=== PATIENT | male | born 1965 | race Caucasian/White ===

== ENCOUNTER 2018-02-07 22:03 | Inpatient (IN) | payer BC ==
[~2018-02-07] VITALS: Ht 182.9 cm; Wt 103.0 kg
[~2018-02-07 22:03] MED LIST: LORCET 5-325 M1 EACH PO; RELAFEN500 M1 PO; SOMA350 MG PO; ZOCOR20 MG PO
[2018-02-08 06:17] VITALS: BP 130/81
[2018-02-08] MEDS ORDERED: ENDOCET 5-3251 EACH PO (10:35)
[2018-02-08] MEDS ORDERED: DOCUSATE SODIU100 MG PO (10:35)
[2018-02-08 15:20] VITALS: BP 137/80
[2018-02-08 23:39] VITALS: BP 176/86
[2018-02-09 04:24] VITALS: BP 177/86
[2018-02-09 06:21] LABS: HEMATOCRIT 39.8 % (38.0-50.0); HEMOGLOBIN 12.9 G/DL (12.5-16.6); MCH 29.5 PG (29.0-34.0); MCHC 32.4 G/DL (30.0-36.0); MCV 90.9 FL (86-99); PLATELET COUNT 229 K/uL (156-360); RBC DIS.WIDTH-CV 13.3 % (11.8-14.6); RBC DIS.WIDTH-SD 44.3 % (39-53); RED BLOOD COUNT 4.38 M/uL (4.00-5.50)
[2018-02-09 06:45] LABS: CHLORIDE 103 MEQ/L (99-109); CREATININE 1.1 MG/DL (0.6-1.3); GFR ESTIMATE (CALCULATED) > 59 mL/min/ (58.99-99999); GLUCOSE 106 mg/dL (70-99); POTASSIUM 4.2 MEQ/L (3.7-5.4); SODIUM 138 MEQ/L (136-147); UREA NITROGEN (BUN) 10 mg/dL (9-23)
[2018-02-09 07:30] VITALS: BP 124/76
[2018-02-09 11:05] VITALS: BP 154/90
[2018-02-09 11:36] VITALS: BP 142/80
[2018-02-09 16:13] VITALS: BP 136/74
[2018-02-09 23:00] VITALS: BP 137/77
[2018-02-10 07:42] VITALS: BP 144/88
[2018-02-10 11:15] VITALS: BP 158/92
== END 2018-02-10 16:29 | disposition home or self-care (01) | DRG 658 ==
LOC: ENRESERV 22:03 → 2SOUTH 02-08 05:33 → ENRESERV 02-08 13:13 → 5EAST 02-08 15:18
PROVIDERS: Urology
PROC: 0TT10ZZ Resection of Left Kidney, Open Approach (ICD-10-PCS; principal; 2018-02-08)
DX: C64.2 Malignant neoplasm of left kidney, except renal pelvis (principal); N28.89 Other specified disorders of kidney and ureter; E78.5 Hyperlipidemia, unspecified; M54.9 Dorsalgia, unspecified; M25.50 Pain in unspecified joint; Z87.891 Personal history of nicotine dependence
CPT/HCPCS: 80048; 85027; 88307; J0131; J0690; J1170; J1644; J1885; J2250; J2300; J2405; J2710; J3010; J7120